=== PATIENT | female | born 1995 | race African-American/Black ===

== ENCOUNTER 2019-10-26 16:13 | Emergency (ER) | payer MEDICAID ==
[~2019-10-26] VITALS: Ht 165.1 cm; Wt 54.0 kg
[2019-10-26] MEDS ORDERED: SODIUM CHLORIDE 0.9% 1,000 ML IV ONE (17:29)
[2019-10-26] MEDS ORDERED: LORAZEPAM 2MG/ML CPJ IV STA (17:29)
[2019-10-26] MEDS ORDERED: DIPHENHYDRAMINE 50MG/ML VIAL IV ONE (17:30)
[2019-10-26] MEDS ORDERED: HALOPERIDOL LACTATE 5MG/ML VIAL IM ONE (17:30)
[2019-10-26 17:50] LABS: BASOPHILS % 0.7 % (0.0-2.0); EOSINOPHILS % 0.6 % (0.0-5.0); HEMATOCRIT. 41.1 % (36.0-48.0); LYMPHOCYTES % 22.2 % (20.0-50.0); MEAN CORPUSCULAR HEMOGLOBIN 33.5 pg (28.0-32.0); MEAN CORPUSCULAR VOLUME 98.3 fL (81.0-99.0); MEAN PLATELET VOLUME 7.6 fl (7.4-10.4); MONOCYTES % 12.5 % (2.0-8.0); PLATELET 322 x1000/uL (130-400); RED BLOOD CELL COUNT 4.18 mill/uL (4.2-5.4); RED CELL DISTRIBUTION WIDTH 12.7 % (11.6-14.6)
[2019-10-26 17:57] LABS: CHLORIDE 103 mEq/L (98-107)
[2019-10-26 17:59] LABS: HCG SCREEN NEGATIVE
[2019-10-26 18:02] LABS: ETHANOL BLOOD < 10 mg/dL
[2019-10-26 18:25] LABS: CREATINE KINASE 656 IU/L (26-192)
[2019-10-26 19:24] LABS: CLARITY URINE CLEAR (CLEAR); COLOR URINE YELLOW (YELLOW); KETONES URINE NEGATIVE (NEGATIVE); LEUKOCYTE ESTERASE URINE NEGATIVE (NEGATIVE); NITRITE URINE NEGATIVE (NEGATIVE); OCCULT BLOOD URINE NEGATIVE (NEGATIVE); PH URINE 7.5 (4.5-8.0); PROTEIN URINE NEGATIVE (NEGATIVE); SPECIFIC GRAVITY URINE 1.004 (1.005-1.030); UROBILINOGEN URINE 0.2 E.U./dL (0.2-1.0)
[2019-10-26 19:50] LABS: *AMPHETAMINES SCREEN URINE NEGATIVE (NEGATIVE)
[2019-10-26 19:51] LABS: *BARBITURATES SCREEN URINE NEGATIVE (NEGATIVE); *BENZODIAZEPINES SCREEN URINE NEGATIVE (NEGATIVE); *COCAINE SCREEN URINE NEGATIVE (NEGATIVE); CANNABINOID URINE SCREEN NEGATIVE (NEGATIVE); METHADONE URINE SCREEN NEGATIVE (NEGATIVE); OPIATES URINE SCREEN NEGATIVE (NEGATIVE); PHENCYCLIDINE URINE SCREEN NEGATIVE (NEGATIVE)
[2019-10-26 20:41] LABS: CREATINE KINASE 679 IU/L (26-192)
[2019-10-27 08:43] VITALS: BP 121/82
== END 2019-10-27 09:09 | disposition home or self-care (01) ==
LOC: ER 16:13
DX: R41.82 Altered mental status, unspecified (principal); R46.2 Strange and inexplicable behavior
CPT/HCPCS: 36415; 70450; 71045; 80053; 80165; 80305; 80307; 80320; 80329; 81003; 81025; 82550; 84443; 84484; 84703; 85025; 93005; 96361; 96372; 96374; 96375; 99285; J1200; J1630; J2060; J7030; G0480

== ENCOUNTER 2021-02-12 05:26 | Emergency (ER) | payer MEDICAID ==
[~2021-02-12] VITALS: Ht 172.7 cm; Wt 73.0 kg
[2021-02-12 05:28] VITALS: BP 128/86
== END 2021-02-12 05:49 | disposition left against medical advice (07) ==
LOC: ER 05:46
DX: K59.00 Constipation, unspecified (principal); Z53.21 Procedure and treatment not carried out due to patient leaving prior to being seen by health care provider

== ENCOUNTER 2021-02-14 20:48 | Emergency (ER) | payer MEDICAID ==
[~2021-02-14] VITALS: Ht 167.6 cm; Wt 59.0 kg
[2021-02-14] MEDS ORDERED: ACETAMINOPHEN 325MG TABLET PO STA (22:40)
[2021-02-14] MEDS ORDERED: SODIUM CHLORIDE 0.9% 1,000 ML IV ONE (22:45)
[2021-02-14 23:15] LABS: CLARITY URINE CLEAR (CLEAR); COLOR URINE YELLOW (YELLOW); KETONES URINE 1+ (NEGATIVE); LEUKOCYTE ESTERASE URINE NEGATIVE (NEGATIVE); NITRITE URINE NEGATIVE (NEGATIVE); OCCULT BLOOD URINE NEGATIVE (NEGATIVE); PROTEIN URINE NEGATIVE (NEGATIVE); SPECIFIC GRAVITY URINE 1.032 (1.005-1.030)
[2021-02-14 23:25] LABS: *BARBITURATES SCREEN URINE NEGATIVE (NEGATIVE); *BENZODIAZEPINES SCREEN URINE NEGATIVE (NEGATIVE); *COCAINE SCREEN URINE NEGATIVE (NEGATIVE); METHADONE URINE SCREEN NEGATIVE (NEGATIVE); OPIATES URINE SCREEN NEGATIVE (NEGATIVE)
[2021-02-14 23:26] LABS: *AMPHETAMINES SCREEN URINE NEGATIVE (NEGATIVE); CANNABINOID URINE SCREEN PRESUMTIVE POSITIVE (NEGATIVE); PHENCYCLIDINE URINE SCREEN NEGATIVE (NEGATIVE)
[2021-02-14 23:42] LABS: BASOPHILS % 1.2 % (0.0-2.0); EOSINOPHILS % 1.9 % (0.0-5.0); HEMATOCRIT. 40.9 % (36.0-48.0); HEMOGLOBIN. 13.8 g/dL (12.0-16.0); LYMPHOCYTES % 29.6 % (20.0-50.0); MEAN CORPUSCULAR HEMOGLOBIN 33.2 pg (28.0-32.0); MEAN CORPUSCULAR VOLUME 97.9 fL (81.0-99.0); MEAN PLATELET VOLUME 7.6 fl (7.4-10.4); MONOCYTES % 12.9 % (2.0-8.0); NEUTROPHILS % 54.4 % (40.0-76.0); PLATELET 342 x1000/uL (130-400); RED BLOOD CELL COUNT 4.17 mill/uL (4.2-5.4)
[2021-02-14 23:50] LABS: CHLORIDE 107 mEq/L (98-107)
[2021-02-14 23:55] LABS: HCG SCREEN NEGATIVE
[2021-02-15 00:30] VITALS: BP 112/67
[2021-02-15 01:32] LABS: INR 1.1; PROTHROMBIN TIME 12.2 sec (9.6-11.0)
== END 2021-02-15 00:48 | disposition home or self-care (01) ==
LOC: ER 20:48
DX: G44.209 Tension-type headache, unspecified, not intractable (principal); K59.00 Constipation, unspecified; F32.9 Major depressive disorder, single episode, unspecified; F20.9 Schizophrenia, unspecified; F17.210 Nicotine dependence, cigarettes, uncomplicated
CPT/HCPCS: 36415; 74018; 80053; 80305; 81003; 83690; 84703; 85025; 85610; 96360; 99284; J7030

== ENCOUNTER 2022-07-31 21:20 | Emergency (ER) | payer MEDICAID ==
[~2022-07-31] VITALS: Ht 172.7 cm; Wt 60.0 kg
[2022-07-31 21:26] VITALS: BP 122/76
[2022-08-02 08:11] LABS: HIV SCREEN 4G Non Reactive (Non Reactive)
== END 2022-08-01 02:49 | disposition home or self-care (01) ==
LOC: ER 21:24
DX: Z77.21 Contact with and (suspected) exposure to potentially hazardous body fluids (principal); F31.9 Bipolar disorder, unspecified; F20.9 Schizophrenia, unspecified
CPT/HCPCS: 36415; 86705; 87389; 99283

== ENCOUNTER 2023-02-27 13:29 | Emergency (ER) | payer MEDICAID ==
[~2023-02-27] VITALS: Ht 167.6 cm; Wt 63.7 kg
[2023-02-27 13:44] VITALS: O2SAT 100
[2023-02-27] MEDS ORDERED: ONDANSETRON 4MG ODT PO ONE (16:30)
[2023-02-27] MEDS ORDERED: ACETAMINOPHEN 325MG TABLET PO PRN (16:30)
[2023-02-27 16:52] LABS: HEMATOCRIT. 37.8 % (36.0-48.0); HEMOGLOBIN. 12.9 g/dL (12.0-16.0); MEAN CORPUSCULAR HEMOGLOBIN 33.4 pg (28.0-32.0); MEAN CORPUSCULAR VOLUME 98.2 fL (81.0-99.0); MEAN PLATELET VOLUME 7.9 fl (7.4-10.4); PLATELET 318 x1000/uL (130-400); RED BLOOD CELL COUNT 3.85 mill/uL (4.2-5.4); RED CELL DISTRIBUTION WIDTH 13.2 % (11.6-14.6)
[2023-02-27 16:58] LABS: CHLORIDE 109 mEq/L (98-107)
[2023-02-27 17:07] LABS: B-HCG QUANTITATIVE < 1 mIU/mL (<3)
[2023-02-27 17:28] LABS: CLARITY URINE CLOUDY (CLEAR); COLOR URINE YELLOW (YELLOW); KETONES URINE NEGATIVE (NEGATIVE); LEUKOCYTE ESTERASE URINE TRACE (NEGATIVE); NITRITE URINE NEGATIVE (NEGATIVE); OCCULT BLOOD URINE NEGATIVE (NEGATIVE); PH URINE 6.5 (4.5-8.0); PROTEIN URINE NEGATIVE (NEGATIVE); SPECIFIC GRAVITY URINE 1.009 (1.005-1.030); UROBILINOGEN URINE 0.2 E.U./dL (0.2-1.0)
[2023-02-27 17:41] LABS: *AMPHETAMINES SCREEN URINE NEGATIVE (NEGATIVE); *BARBITURATES SCREEN URINE NEGATIVE (NEGATIVE); *BENZODIAZEPINES SCREEN URINE NEGATIVE (NEGATIVE); *COCAINE SCREEN URINE NEGATIVE (NEGATIVE); METHADONE URINE SCREEN NEGATIVE (NEGATIVE); OPIATES URINE SCREEN NEGATIVE (NEGATIVE); PHENCYCLIDINE URINE SCREEN NEGATIVE (NEGATIVE)
[2023-02-27 17:42] LABS: CANNABINOID URINE SCREEN PRESUMTIVE POSITIVE (NEGATIVE)
[2023-02-27 17:56] LABS: PLATELET ESTIMATE NORMAL
[2023-02-27] MEDS ORDERED: CEPHALEXIN 250MG CAPSULE PO ONE (18:30)
[2023-02-27] MEDS ORDERED: BACLOFEN 10MG TABLET PO ONE (18:30)
[2023-02-27] MEDS ORDERED: CEPH500C2 MT (18:31)
[2023-02-27] MEDS ORDERED: BACL-141 MT (18:31)
[2023-02-27] MEDS ORDERED: NAPR220C61 MT (18:31)
[2023-02-27 18:44] VITALS: BP 135/94; PULSE 83; RESP 18; TEMP 98.7
== END 2023-02-27 18:46 | disposition home or self-care (01) ==
LOC: ER 14:00
DX: N39.0 Urinary tract infection, site not specified (principal); E11.9 Type 2 diabetes mellitus without complications; Z00.00 Encounter for general adult medical examination without abnormal findings; Z86.59 Personal history of other mental and behavioral disorders
CPT/HCPCS: 80053; 80305; 81003; 81025; 84702; 85025; 86850; 86900; 86901; 87210; 36415; 76856; 99284; Q0162; Z7610

== ENCOUNTER 2025-05-02 15:51 | Emergency (ER) | payer MEDICAID ==
[~2025-05-02] VITALS: Ht 167.6 cm; Wt 50.0 kg
[~2025-05-02 15:51] MED LIST: BACL-141 MT; CEPH500C2 MT; NAPR220C61 MT
[2025-05-02 15:58] VITALS: BP 124/80; PULSE 99; RESP 18; O2SAT 99
== END 2025-05-02 16:15 | disposition home or self-care (01) ==
LOC: ER 15:58
DX: M25.512 Pain in left shoulder (principal); F10.90 Alcohol use, unspecified, uncomplicated; F12.90 Cannabis use, unspecified, uncomplicated; Y08.89XA Assault by other specified means, initial encounter; Y93.89 Activity, other specified; Y92.89 Other specified places as the place of occurrence of the external cause; Y99.8 Other external cause status; Y90.9 Presence of alcohol in blood, level not specified
CPT/HCPCS: 99283

== ENCOUNTER 2025-05-02 16:30 | Emergency (ER) | payer MEDICAID ==
[~2025-05-02] VITALS: Ht 172.7 cm; Wt 69.0 kg
[2025-05-02] MEDS: DIPHENHYDRAMINE 50MG/ML VIAL IM ONE (18:42)
[2025-05-02] MEDS: KETOROLAC 15MG/ML VIAL IM ONE (18:43)
[2025-05-02] MEDS: HALOPERIDOL LACTATE 5MG/ML VIAL IM ONE (18:43)
[2025-05-02] MEDS: LORAZEPAM 2MG/ML UD SYRINGE IM SCH (18:43)
[2025-05-02 19:35] LABS: BASOPHILS % 0.8 % (0.0-2.0); EOSINOPHILS % 0.1 % (0.0-5.0); HEMATOCRIT. 35.4 % (36.0-48.0); HEMOGLOBIN. 11.9 g/dL (12.0-16.0); LYMPHOCYTES % 15.1 % (20.0-50.0); MEAN PLATELET VOLUME 7.9 fl (7.4-10.4); MONOCYTES % 9.1 % (2.0-8.0); NEUTROPHILS % 74.9 % (40.0-76.0); PLATELET 234 x1000/uL (130-400); RED BLOOD CELL COUNT 3.63 mill/uL (4.2-5.4); RED CELL DISTRIBUTION WIDTH 12.6 % (11.6-14.6)
[2025-05-02 19:50] LABS: CREATININE 1.2 mg/dL (0.6-1.0); ETHANOL BLOOD < 10 mg/dL (<10); UREA NITROGEN BLOOD 9 mg/dL (9-23)
[2025-05-02 19:51] LABS: ASPARTATE AMINOTRANSFERASE 40 IU/L (<34)
[2025-05-02 19:52] LABS: BILIRUBIN DIRECT 0.3 mg/dL (<=3.0); BILIRUBIN TOTAL 0.9 mg/dL (0.1-1.0); PROTEIN TOTAL 6.6 g/dL (6.0-8.3)
[2025-05-02 19:53] LABS: HCG SCREEN NEGATIVE
[2025-05-02 21:16] LABS: CLARITY URINE CLEAR (CLEAR); COLOR URINE DARK YELLOW (YELLOW); GLUCOSE URINE NEGATIVE (NEGATIVE); KETONES URINE 1+ (NEGATIVE); LEUKOCYTE ESTERASE URINE NEGATIVE (NEGATIVE); NITRITE URINE NEGATIVE (NEGATIVE); OCCULT BLOOD URINE NEGATIVE (NEGATIVE); PH URINE 6.0 (4.5-8.0); PROTEIN URINE 2+ (NEGATIVE); SPECIFIC GRAVITY URINE 1.032 (1.005-1.030); UROBILINOGEN URINE 1.0 E.U./dL (0.2-1.0)
[2025-05-02 21:24] LABS: *AMPHETAMINES SCREEN URINE NEGATIVE (NEGATIVE); *BARBITURATES SCREEN URINE NEGATIVE (NEGATIVE); *BENZODIAZEPINES SCREEN URINE NEGATIVE (NEGATIVE); *COCAINE SCREEN URINE NEGATIVE (NEGATIVE); CANNABINOID URINE SCREEN PRESUMPTIVE POSITIVE (NEGATIVE); METHADONE URINE SCREEN NEGATIVE (NEGATIVE); OPIATES URINE SCREEN NEGATIVE (NEGATIVE); PHENCYCLIDINE URINE SCREEN NEGATIVE (NEGATIVE)
[2025-05-02 21:25] LABS: ECSTASY MDMA SCREEN URINE NEGATIVE (NEGATIVE)
[2025-05-02 21:42] LABS: RBC URINE 0-2 /hpf (0-2); WBC URINE 0-2 /hpf (0-2)
[2025-05-02 21:43] LABS: BACTERIA URINE 1+; SQUAMOUS EPITHELIAL CELL URINE 1+ /lpf (RARE/1+)
[2025-05-03] MEDS: HALOPERIDOL LACTATE 5MG/ML VIAL IM ONE (05:51)
[2025-05-03] MEDS: LORAZEPAM 2MG/ML UD SYRINGE IM NR (05:52)
[2025-05-03 07:30] VITALS: O2SAT 92
[2025-05-03 18:20] VITALS: BP 115/76; PULSE 72; RESP 18; TEMP 36.8; O2SAT 99
== END 2025-05-03 18:36 ==
LOC: ER 16:30
DX: F23 Brief psychotic disorder (principal); M79.602 Pain in left arm; I10 Essential (primary) hypertension; F12.90 Cannabis use, unspecified, uncomplicated; F10.90 Alcohol use, unspecified, uncomplicated; Z59.00 Homelessness unspecified; Z20.822 Contact with and (suspected) exposure to COVID-19; Z79.899 Other long term (current) drug therapy; Y90.9 Presence of alcohol in blood, level not specified
CPT/HCPCS: 80076; 80305; 80048; 81003; 80307; 80329; 80320; 84703; 85025; 36415; 73030; 96372 ×2; 99291; 87426; J1200; J1630 ×2; J1885; J2060 ×2; Z7610 ×3; G0480